=== PATIENT | female | born 1985 | race African-American/Black ===

== ENCOUNTER 2023-01-29 16:39 | Emergency (ER) | payer SELFPAY ==
[~2023-01-29] VITALS: Ht 157.5 cm; Wt 111.0 kg
[2023-01-29 16:52] VITALS: TEMP 98.9; O2SAT 100
[2023-01-29] MEDS ORDERED: TOPUD MT (20:38)
[2023-01-29] MEDS ORDERED: LIDO700A15 TP (20:38)
[2023-01-29 21:01] VITALS: BP 202/119; PULSE 77; RESP 18
== END 2023-01-29 21:03 | disposition home or self-care (01) ==
LOC: ER 16:39
DX: S20.219A Contusion of unspecified front wall of thorax, initial encounter (principal); S20.319A Abrasion of unspecified front wall of thorax, initial encounter; I10 Essential (primary) hypertension; V49.49XA Driver injured in collision with other motor vehicles in traffic accident, initial encounter; Y93.89 Activity, other specified; Y92.89 Other specified places as the place of occurrence of the external cause; Y99.8 Other external cause status
CPT/HCPCS: 71045; 81025; 93005; 99283

== ENCOUNTER 2023-09-10 21:46 | Inpatient (IN) | payer MEDICAID, OTHER ==
[~2023-09-10] VITALS: Ht 157.5 cm; Wt 93.1 kg
[~2023-09-10 21:46] MED LIST: LIDO700A15 TP; TOPUD MT
[2023-09-10 22:38] LABS: CLARITY URINE CLOUDY (CLEAR); COLOR URINE YELLOW (YELLOW); GLUCOSE URINE TRACE (NEGATIVE); KETONES URINE NEGATIVE (NEGATIVE); LEUKOCYTE ESTERASE URINE 2+ (NEGATIVE); NITRITE URINE NEGATIVE (NEGATIVE); OCCULT BLOOD URINE 1+ (NEGATIVE); PROTEIN URINE 3+ (NEGATIVE); SPECIFIC GRAVITY URINE 1.011 (1.005-1.030); UROBILINOGEN URINE 0.2 E.U./dL (0.2-1.0)
[2023-09-10 22:41] LABS: BASOPHILS % 0.5 % (0.0-2.0); EOSINOPHILS % 2.4 % (0.0-5.0); HEMATOCRIT. 24.7 % (36.0-48.0); LYMPHOCYTES % 20.2 % (20.0-50.0); MEAN CORPUSCULAR HEMOGLOBIN 29.7 pg (28.0-32.0); MEAN CORPUSCULAR HGB CONC 32.4 g/dL (31.0-37.0); MEAN CORPUSCULAR VOLUME 91.8 fL (81.0-99.0); MEAN PLATELET VOLUME 7.5 fl (7.4-10.4); MONOCYTES % 6.2 % (2.0-8.0); NEUTROPHILS % 70.7 % (40.0-76.0); PLATELET 262 x1000/uL (130-400); RED BLOOD CELL COUNT 2.69 mill/uL (4.2-5.4); WHITE BLOOD COUNT 7.6 x1000/uL (4.5-11.0)
[2023-09-10 22:43] LABS: CHLORIDE 107 mEq/L (98-107); POTASSIUM 4.3 mEq/L (3.5-5.1); SODIUM 138 mEq/L (136-145)
[2023-09-10 22:44] LABS: CALCIUM 9.1 mg/dL (8.7-10.4); CARBON DIOXIDE 18 mEq/L (21-32)
[2023-09-10 22:49] LABS: GLUCOSE 111 mg/dL (70-105); UREA NITROGEN BLOOD 96 mg/dL (9-23)
[2023-09-10 22:51] LABS: ALANINE AMINOTRANSFERASE 8 IU/L (10-49); ALBUMIN 4.5 g/dL (3.2-4.8); ASPARTATE AMINOTRANSFERASE 11 IU/L (<34); BILIRUBIN TOTAL 0.3 mg/dL (0.1-1.0); PROTEIN TOTAL 7.5 g/dL (6.0-8.3)
[2023-09-10 22:53] LABS: HCG SCREEN NEGATIVE
[2023-09-10 22:54] LABS: CREATININE 14.5 mg/dL (0.6-1.0)
[2023-09-10 22:55] LABS: BILIRUBIN DIRECT < 0.1 mg/dL (<=3.0)
[2023-09-10 23:02] LABS: BACTERIA URINE 1+; SQUAMOUS EPITHELIAL CELL URINE 2+ /lpf (RARE/1+)
[2023-09-10 23:03] LABS: WBC URINE 25-50 /hpf (0-2)
[2023-09-10 23:06] LABS: TRICHOMONAS URINE 1+
[2023-09-11] MEDS: CEFTRIAXONE 1GM/50ML 50 ML IV ONE (01:40)
[2023-09-11] MEDS ORDERED: IPRATROPIUM/ALBUTEROL 0.5-3(2.5)MG/3ML NEB HHN PRN (01:45)
[2023-09-11] MEDS ORDERED: GUAIFENESIN 200MG/10ML SUGAR FREE UDC PO PRN (01:45)
[2023-09-11] MEDS ORDERED: ACETAMINOPHEN 325MG TABLET PO PRN (01:45)
[2023-09-11] MEDS ORDERED: DOCUSATE SODIUM 100MG CAPSULE PO PRN (01:45)
[2023-09-11] MEDS: CLONIDINE 0.1MG TABLET PO PRN (01:47)
[2023-09-11 04:00] VITALS: BP 148/92; PULSE 66; RESP 11; TEMP 97.7
[2023-09-11] MEDS: LEVOFLOXACIN 500MG PREMIX 100 ML IV NR (07:09)
[2023-09-11 08:00] VITALS: BP 145/94; PULSE 74; RESP 21; TEMP 97.9
[2023-09-11 08:50] LABS: CREATININE URINE RANDOM 70.2 mg/dL
[2023-09-11] MEDS: METRONIDAZOLE 500MG TABLET PO SCH (08:56)
[2023-09-11 09:43] LABS: BASOPHILS % 0.7 % (0.0-2.0); EOSINOPHILS % 3.4 % (0.0-5.0); HEMATOCRIT. 23.4 % (36.0-48.0); HEMOGLOBIN. 7.9 g/dL (12.0-16.0); LYMPHOCYTES % 22.1 % (20.0-50.0); MEAN CORPUSCULAR HEMOGLOBIN 30.1 pg (28.0-32.0); MEAN CORPUSCULAR HGB CONC 33.7 g/dL (31.0-37.0); MEAN CORPUSCULAR VOLUME 89.5 fL (81.0-99.0); NEUTROPHILS % 67.8 % (40.0-76.0); PLATELET 230 x1000/uL (130-400); RED BLOOD CELL COUNT 2.62 mill/uL (4.2-5.4); RED CELL DISTRIBUTION WIDTH 14.1 % (11.6-14.6); WHITE BLOOD COUNT 5.6 x1000/uL (4.5-11.0)
[2023-09-11 09:51] LABS: CHLORIDE 107 mEq/L (98-107); POTASSIUM 3.8 mEq/L (3.5-5.1); SODIUM 138 mEq/L (136-145)
[2023-09-11 09:52] LABS: CALCIUM 9.2 mg/dL (8.7-10.4); CARBON DIOXIDE 18 mEq/L (21-32)
[2023-09-11 09:57] LABS: GLUCOSE 137 mg/dL (70-105); INR 0.9; IRON 50 ug/dL (50-170); PARTIAL THROMBOPLASTIN TIME 26.6 sec (23.4-31.0); PROTHROMBIN TIME 10.3 sec (9.6-11.0); TRIGLYCERIDE 115 mg/dL (0-150); UREA NITROGEN BLOOD 87 mg/dL (9-23)
[2023-09-11 09:58] LABS: LDL CHOLESTEROL 155 mg/dL (5-100)
[2023-09-11 09:59] LABS: CHOLESTEROL 218 mg/dL (<200); CREATINE KINASE 88 IU/L (34-145); HDL CHOLESTEROL 34 mg/dL (>65); PHOSPHORUS 7.5 mg/dL (2.5-4.9)
[2023-09-11 10:00] LABS: TOTAL IRON BINDING CAPACITY 396 ug/dl (250-425)
[2023-09-11 10:39] LABS: CREATININE 15.2 mg/dL (0.6-1.0)
[2023-09-11 11:22] LABS: FOLIC ACID (FOLATE) SERUM 15.01 ng/mL (>5.38); VITAMIN B12 SERUM 515 pg/mL (211-911)
[2023-09-11 11:32] LABS: HEPATITIS B SURFACE ANTIGEN NEGATIVE (Negative)
[2023-09-11] MEDS: SODIUM BICARBONATE 50 MEQ in DEXTROSE 5% WATER 950 ML IV ONE (11:45)
[2023-09-11 11:53] LABS: HEPATITIS A AB IGM NEGATIVE (Negative); HEPATITIS B CORE AB IGM NEGATIVE (Negative)
[2023-09-11 11:54] LABS: HEPATITIS C AB NON REACTIVE (Neg) (Negative)
[2023-09-11 12:00] VITALS: BP 135/91; PULSE 75; RESP 12; TEMP 97.7
[2023-09-11 16:00] VITALS: BP 142/83; PULSE 84; RESP 14; TEMP 98
[2023-09-11 20:48] VITALS: BP 146/81; PULSE 88; RESP 16; TEMP 98.5
[2023-09-11] MEDS: ATORVASTATIN CALCIUM 40MG TABLET PO SCH (20:57)
[2023-09-11] MEDS: AMLODIPINE 5MG TABLET PO SCH (20:57)
[2023-09-12] VITALS (7 sets, daily range): BP systolic 112–167; BP diastolic 62–94; PULSE 80–88; RESP 14–18; TEMP 97.5–98.2
[2023-09-12 07:24] LABS: BASOPHILS % 0.5 % (0.0-2.0); EOSINOPHILS % 3.5 % (0.0-5.0); HEMATOCRIT. 23.1 % (36.0-48.0); HEMOGLOBIN. 7.9 g/dL (12.0-16.0); LYMPHOCYTES % 23.3 % (20.0-50.0); MEAN CORPUSCULAR HEMOGLOBIN 30.8 pg (28.0-32.0); MEAN CORPUSCULAR HGB CONC 34.3 g/dL (31.0-37.0); MEAN CORPUSCULAR VOLUME 89.8 fL (81.0-99.0); MEAN PLATELET VOLUME 8.1 fl (7.4-10.4); MONOCYTES % 6.7 % (2.0-8.0); PLATELET 212 x1000/uL (130-400); RED BLOOD CELL COUNT 2.57 mill/uL (4.2-5.4); RED CELL DISTRIBUTION WIDTH 14.1 % (11.6-14.6); WHITE BLOOD COUNT 6.2 x1000/uL (4.5-11.0)
[2023-09-12 08:10] LABS: POTASSIUM 3.5 mEq/L (3.5-5.1)
[2023-09-12 08:12] LABS: T4 FREE 0.86 ng/dL (0.89-1.76); THYROID STIMULATING HORMONE 2.21 uIU/mL (0.55-4.78)
[2023-09-12 08:16] LABS: CALCIUM 8.9 mg/dL (8.7-10.4)
[2023-09-12] MEDS: ASPIRIN 81MG EC TABLET PO SCH (08:31)
[2023-09-12] MEDS: SEVELAMER CARBONATE 800 MG TABLET PO SCH (17:52)
[2023-09-13] VITALS (23 sets, daily range): BP systolic 72–169; BP diastolic 17–102; PULSE 80–100; RESP 13–22; TEMP 97.3–98.3
[2023-09-13] MEDS: DEXT 5%/0.9% NACL 1,000 ML IV SCH (06:42)
[2023-09-13 06:45] LABS: BASOPHILS % 0.6 % (0.0-2.0); EOSINOPHILS % 3.1 % (0.0-5.0); HEMATOCRIT. 22.4 % (36.0-48.0); HEMOGLOBIN. 7.4 g/dL (12.0-16.0); LYMPHOCYTES % 27.1 % (20.0-50.0); MEAN CORPUSCULAR HEMOGLOBIN 29.9 pg (28.0-32.0); MEAN CORPUSCULAR VOLUME 90.4 fL (81.0-99.0); MEAN PLATELET VOLUME 8.1 fl (7.4-10.4); NEUTROPHILS % 63.2 % (40.0-76.0); PLATELET 224 x1000/uL (130-400); RED BLOOD CELL COUNT 2.48 mill/uL (4.2-5.4); RED CELL DISTRIBUTION WIDTH 14.1 % (11.6-14.6); WHITE BLOOD COUNT 7.2 x1000/uL (4.5-11.0)
[2023-09-13 06:51] LABS: CHLORIDE 105 mEq/L (98-107); POTASSIUM 3.7 mEq/L (3.5-5.1); SODIUM 138 mEq/L (136-145)
[2023-09-13 06:52] LABS: CARBON DIOXIDE 17 mEq/L (21-32)
[2023-09-13 06:53] LABS: INR 0.9; PROTHROMBIN TIME 10.3 sec (9.6-11.0)
[2023-09-13 06:57] LABS: GLUCOSE 86 mg/dL (70-105); UREA NITROGEN BLOOD 97 mg/dL (9-23)
[2023-09-13 07:48] LABS: CREATININE 14.9 mg/dL (0.6-1.0)
[2023-09-13] MEDS ORDERED: LIDOCAINE HCL 1% 10 MG/ML 10ML VIAL ONE (08:48)
[2023-09-13] MEDS ORDERED: FENTANYL CITRATE/PF 50MCG/ML 2ML VIAL ONE (08:49)
[2023-09-13] MEDS: FENTANYL CITRATE/PF 50MCG/ML 2ML VIAL IV NR (09:00)
[2023-09-13] MEDS: LEVOFLOXACIN 250MG PREMIX 50 ML IV SCH (10:27)
[2023-09-13] MEDS: FOLIC ACID/VITAMIN B COMP W-C TABLET PO SCH (14:17)
[2023-09-13 15:17] LABS: PHOSPHORUS 9.2 mg/dL (2.5-4.9)
[2023-09-13] MEDS: METRONIDAZOLE 500MG TABLET PO SCH (20:50)
[2023-09-13] MEDS: ACETAMINOPHEN 325MG TABLET PO PRN (20:51)
[2023-09-14] VITALS (17 sets, daily range): BP systolic 120–157; BP diastolic 75–106; PULSE 82–106; RESP 13–24; TEMP 97.3–99
[2023-09-14 07:22] LABS: BASOPHILS % 0.6 % (0.0-2.0); EOSINOPHILS % 3.2 % (0.0-5.0); HEMATOCRIT. 22.6 % (36.0-48.0); HEMOGLOBIN. 7.7 g/dL (12.0-16.0); LYMPHOCYTES % 21.4 % (20.0-50.0); MEAN CORPUSCULAR HEMOGLOBIN 30.3 pg (28.0-32.0); MEAN CORPUSCULAR HGB CONC 34.2 g/dL (31.0-37.0); MEAN CORPUSCULAR VOLUME 88.7 fL (81.0-99.0); MEAN PLATELET VOLUME 8.2 fl (7.4-10.4); MONOCYTES % 7.2 % (2.0-8.0); NEUTROPHILS % 67.6 % (40.0-76.0); PLATELET 196 x1000/uL (130-400); RED BLOOD CELL COUNT 2.54 mill/uL (4.2-5.4); RED CELL DISTRIBUTION WIDTH 13.9 % (11.6-14.6); WHITE BLOOD COUNT 6.2 x1000/uL (4.5-11.0)
[2023-09-14 07:24] LABS: CALCIUM 9.1 mg/dL (8.7-10.4); POTASSIUM 3.6 mEq/L (3.5-5.1)
[2023-09-14 07:41] LABS: CREATININE 11.1 mg/dL (0.6-1.0)
[2023-09-14 13:07] LABS: *CREATININE RANDOM URINE 66.5 mg/dL (Not Estab.); MICROALBUMIN RANDOM URINE 502.4 ug/mL (Not Estab.)
[2023-09-14 13:07] LABS: ANTI-NUCLEAR ANTIBODIES DIRECT Negative (Negative)
[2023-09-14 15:09] LABS: COMPLEMENT C3 111 mg/dL (82-167); COMPLEMENT C4 38 mg/dL (12-38)
[2023-09-14] MEDS: ONDANSETRON HCL 4MG/2ML INJ IV PRN (20:23)
[2023-09-15] VITALS (16 sets, daily range): BP systolic 76–154; BP diastolic 52–98; PULSE 71–98; RESP 12–18; TEMP 98–98.4
[2023-09-15 06:31] LABS: BASOPHILS % 0.4 % (0.0-2.0); HEMATOCRIT. 23.1 % (36.0-48.0); HEMOGLOBIN. 7.9 g/dL (12.0-16.0); LYMPHOCYTES % 25.9 % (20.0-50.0); MEAN CORPUSCULAR HEMOGLOBIN 30.5 pg (28.0-32.0); MEAN CORPUSCULAR HGB CONC 34.3 g/dL (31.0-37.0); MEAN CORPUSCULAR VOLUME 88.8 fL (81.0-99.0); MEAN PLATELET VOLUME 7.9 fl (7.4-10.4); MONOCYTES % 9.3 % (2.0-8.0); NEUTROPHILS % 61.4 % (40.0-76.0); PLATELET 218 x1000/uL (130-400); RED CELL DISTRIBUTION WIDTH 14.3 % (11.6-14.6); WHITE BLOOD COUNT 7.7 x1000/uL (4.5-11.0)
[2023-09-15 06:48] LABS: CALCIUM 9.6 mg/dL (8.7-10.4); POTASSIUM 3.5 mEq/L (3.5-5.1)
[2023-09-15 13:07] LABS: ATYPICAL P-ANCA <1:20 titer (Neg:<1:20); CYTOPLASMIC C-ANCA <1:20 titer (Neg:<1:20); PERINUCLEAR P-ANCA <1:20 titer (Neg:<1:20)
[2023-09-15 17:07] LABS: ANTI-MYELOPEROXIDASE AB < 0.2 units (0.0-0.9); ANTI-PROTEINASE 3 ABS < 0.2 units (0.0-0.9); GLOMERULAR BASEMENT MEMB AB < 0 units (0.0-0.9)
[2023-09-16] VITALS (12 sets, daily range): BP systolic 94–146; BP diastolic 68–99; PULSE 85–103; RESP 12–21; TEMP 98.1–98.6
[2023-09-16 05:48] LABS: POTASSIUM 3.7 mEq/L (3.5-5.1)
[2023-09-16 06:09] LABS: CREATININE 8.5 mg/dL (0.6-1.0)
[2023-09-16 06:22] LABS: BASOPHILS % 0.6 % (0.0-2.0); HEMATOCRIT. 24.8 % (36.0-48.0); HEMOGLOBIN. 8.3 g/dL (12.0-16.0); LYMPHOCYTES % 23.4 % (20.0-50.0); MEAN CORPUSCULAR HEMOGLOBIN 30.2 pg (28.0-32.0); MEAN CORPUSCULAR HGB CONC 33.5 g/dL (31.0-37.0); MEAN CORPUSCULAR VOLUME 90.1 fL (81.0-99.0); MEAN PLATELET VOLUME 8.8 fl (7.4-10.4); MONOCYTES % 8.8 % (2.0-8.0); NEUTROPHILS % 64.2 % (40.0-76.0); PLATELET 233 x1000/uL (130-400); RED BLOOD CELL COUNT 2.75 mill/uL (4.2-5.4); RED CELL DISTRIBUTION WIDTH 14.3 % (11.6-14.6); WHITE BLOOD COUNT 9.4 x1000/uL (4.5-11.0)
[2023-09-16] MEDS: POLYVINYL ALCOHOL OPHTH DROPS 15ML BOTHEYE SCH (16:04)
[2023-09-17] VITALS: BP 132/91; PULSE 91; RESP 14; TEMP 97.8
[2023-09-17 04:00] VITALS: PULSE 98; RESP 15
[2023-09-17 08:00] VITALS: BP 116/69; PULSE 92; RESP 19; TEMP 98.7
[2023-09-17] MEDS ORDERED: POLYVINYL ALCOHOL OPHTH DROPS 15ML BOTHEYE PRN (11:30)
[2023-09-17 12:00] VITALS: BP 110/75; PULSE 93; RESP 25; TEMP 98.6
[2023-09-17] MEDS ORDERED: ATOR10TA69 PO (13:57)
[2023-09-17 16:11] VITALS: BP 110/75; PULSE 93; TEMP 98.6; O2SAT 94
== END 2023-09-17 18:40 | disposition home or self-care (01) | DRG 469 ==
LOC: ER 21:46 → EDBEDREQTM 09-11 00:15 → EDBEDREQ 09-11 00:15 → EDBEDREQDT 09-11 00:15 → EDBEDREQSVC 09-11 01:51 → EDBEDREQTM 09-11 01:51 → 3WST 09-11 03:45
PROVIDERS: ADMIT Internal Medicine; ATTEND Internal Medicine
PROC: 0JH63XZ Insertion of Tunneled Vascular Access Device into Chest Subcutaneous Tissue and Fascia, Percutaneous Approach (ICD-10-PCS; principal; 2023-09-13)
PROC: 02HV33Z Insertion of Infusion Device into Superior Vena Cava, Percutaneous Approach (ICD-10-PCS; 2023-09-13)
PROC: B518ZZA Fluoroscopy of Superior Vena Cava, Guidance (ICD-10-PCS; 2023-09-13)
PROC: 5A1D70Z Performance of Urinary Filtration, Intermittent, Less than 6 Hours Per Day (ICD-10-PCS; 2023-09-13)
PROC: 5A1D70Z Performance of Urinary Filtration, Intermittent, Less than 6 Hours Per Day (ICD-10-PCS; 2023-09-14)
PROC: 5A1D70Z Performance of Urinary Filtration, Intermittent, Less than 6 Hours Per Day (ICD-10-PCS; 2023-09-15)
PROC: 5A1D70Z Performance of Urinary Filtration, Intermittent, Less than 6 Hours Per Day (ICD-10-PCS; 2023-09-16)
DX: N17.9 Acute kidney failure, unspecified (principal); E87.20 Acidosis, unspecified; I12.0 Hypertensive chronic kidney disease with stage 5 chronic kidney disease or end stage renal disease; A59.01 Trichomonal vulvovaginitis; E78.5 Hyperlipidemia, unspecified; D64.9 Anemia, unspecified; N39.0 Urinary tract infection, site not specified; R79.89 Other specified abnormal findings of blood chemistry; N18.6 End stage renal disease; J44.89 Other specified chronic obstructive pulmonary disease; L40.9 Psoriasis, unspecified; N27.1 Small kidney, bilateral; Z88.0 Allergy status to penicillin; Z98.891 History of uterine scar from previous surgery
CPT/HCPCS: 36415; 36558; 71045; 76770; 76937; 77001; 80048; 80061; 80076; 81003; 82043; 82550; 82570; 82607; 82746; 83036; 83516; 83520; 83540; 83550; 83735; 83970; 84100; 84156; 84300; 84439; 84443; 84703; 85025; 86038; 86160; 86256; 86431; 86705; 86706; 86709; 87340; 90935; 93306; 93970; 99152; 99153; 99285; C1750; C1887; C1892; J0696; J1642; J1956; J2405; J3010; J3490; J7042; J7070; G0500

== ENCOUNTER 2023-10-28 20:40 | Emergency (ER) | payer MEDICAID ==
[~2023-10-28] VITALS: Ht 165.1 cm; Wt 112.0 kg
[~2023-10-28 20:40] MED LIST changes: +ATOR10TA69 PO
[2023-10-28 21:19] VITALS: BP 119/82; PULSE 103; RESP 18; TEMP 98.9; O2SAT 100
[2023-10-29 14:18] LABS: BASOPHILS % 0.3 % (0.0-2.0); EOSINOPHILS % 1.5 % (0.0-5.0); HEMATOCRIT. 23.8 % (36.0-48.0); HEMOGLOBIN. 7.6 g/dL (12.0-16.0); LYMPHOCYTES % 11.4 % (20.0-50.0); MEAN CORPUSCULAR HEMOGLOBIN 30.2 pg (28.0-32.0); MEAN CORPUSCULAR HGB CONC 32.2 g/dL (31.0-37.0); MEAN PLATELET VOLUME 8.1 fl (7.4-10.4); MONOCYTES % 6.3 % (2.0-8.0); NEUTROPHILS % 80.5 % (40.0-76.0); PLATELET 371 x1000/uL (130-400); RED BLOOD CELL COUNT 2.53 mill/uL (4.2-5.4); WHITE BLOOD COUNT 9.9 x1000/uL (4.5-11.0)
[2023-10-29 14:32] LABS: CARBON DIOXIDE 28 mEq/L (21-32); CHLORIDE 102 mEq/L (98-107); POTASSIUM 3.8 mEq/L (3.5-5.1); SODIUM 138 mEq/L (136-145)
[2023-10-29 14:33] LABS: CALCIUM 9.4 mg/dL (8.7-10.4)
[2023-10-29 14:38] LABS: GLUCOSE 165 mg/dL (70-105); UREA NITROGEN BLOOD 26 mg/dL (9-23)
[2023-10-29 14:40] LABS: ALANINE AMINOTRANSFERASE 13 IU/L (10-49); ALBUMIN 4.3 g/dL (3.2-4.8); ASPARTATE AMINOTRANSFERASE 12 IU/L (<34); BILIRUBIN TOTAL 0.2 mg/dL (0.1-1.0); PROTEIN TOTAL 7.2 g/dL (6.0-8.3)
[2023-10-29 15:06] LABS: CREATININE 9.4 mg/dL (0.6-1.0)
== END 2023-10-28 23:06 | disposition home or self-care (01) ==
LOC: ER 20:40
DX: T83.098A Other mechanical complication of other urinary catheter, initial encounter (principal); I10 Essential (primary) hypertension; R00.0 Tachycardia, unspecified; Z88.0 Allergy status to penicillin; X58.XXXA Exposure to other specified factors, initial encounter
CPT/HCPCS: 36415; 80053; 85025; 99283

== ENCOUNTER 2023-10-29 13:12 | Inpatient (IN) | payer MEDICAID ==
[~2023-10-29] VITALS: Ht 157.5 cm; Wt 85.7 kg
[2023-10-29] MEDS: VANCOMYCIN 1G PREMIX 200 ML IV SCH (15:00)
[2023-10-29 15:59] LABS: HEPATITIS B SURFACE ANTIGEN NEGATIVE (Negative)
[2023-10-29 16:20] LABS: HEPATITIS A AB IGM NEGATIVE (Negative)
[2023-10-29 16:21] LABS: HEPATITIS B CORE AB IGM NEGATIVE (Negative); HEPATITIS C AB NON REACTIVE (Neg) (Negative)
[2023-10-29] MEDS: LEVOFLOXACIN 500MG PREMIX 100 ML IV SCH (16:45)
[2023-10-29] MEDS ORDERED: IPRATROPIUM/ALBUTEROL 0.5-3(2.5)MG/3ML NEB HHN PRN (18:30)
[2023-10-29] MEDS ORDERED: DOCUSATE SODIUM 100MG CAPSULE PO PRN (18:30)
[2023-10-29] MEDS ORDERED: ACETAMINOPHEN 325MG TABLET PO PRN (18:30)
[2023-10-29] MEDS ORDERED: MAGNESIUM/ALUMINUM HYDROXIDE/SIMETHICONE 30ML UDC PO PRN (18:30)
[2023-10-29] MEDS ORDERED: CLONIDINE 0.1MG TABLET PO PRN (18:30)
[2023-10-29] MEDS ORDERED: ONDANSETRON HCL 4MG/2ML INJ IV PRN (18:30)
[2023-10-29 20:00] VITALS: BP_SYST 136; BP_SYST 137; BP_DIAS 82; BP_DIAS 88; PULSE 104; PULSE 20; RESP 20; TEMP 97.5; TEMP 99.1
[2023-10-29 20:00] LABS: CHLORIDE 103 mEq/L (98-107)
[2023-10-29 20:01] LABS: CALCIUM 9.2 mg/dL (8.7-10.4); CARBON DIOXIDE 25 mEq/L (21-32); POTASSIUM 3.9 mEq/L (3.5-5.1); SODIUM 140 mEq/L (136-145)
[2023-10-29 20:06] LABS: GLUCOSE 165 mg/dL (70-105)
[2023-10-29 20:07] LABS: LDL CHOLESTEROL 38 mg/dL (5-100); TRIGLYCERIDE 212 mg/dL (0-150); UREA NITROGEN BLOOD 27 mg/dL (9-23)
[2023-10-29 20:08] LABS: ALANINE AMINOTRANSFERASE 15 IU/L (10-49); ALBUMIN 4.2 g/dL (3.2-4.8); ASPARTATE AMINOTRANSFERASE 12 IU/L (<34); CHOLESTEROL 87 mg/dL (<200); HDL CHOLESTEROL 22 mg/dL (>65)
[2023-10-29 20:09] LABS: BILIRUBIN TOTAL 0.2 mg/dL (0.1-1.0); PROTEIN TOTAL 6.8 g/dL (6.0-8.3)
[2023-10-29] MEDS: ACETAMINOPHEN 325MG TABLET PO PRN (20:10)
[2023-10-29 20:25] LABS: CREATININE 9.5 mg/dL (0.6-1.0)
[2023-10-29 21:21] LABS: BASOPHILS % 0.4 % (0.0-2.0); EOSINOPHILS % 0.9 % (0.0-5.0); HEMATOCRIT. 22.9 % (36.0-48.0); HEMOGLOBIN. 7.5 g/dL (12.0-16.0); LYMPHOCYTES % 14.8 % (20.0-50.0); MEAN CORPUSCULAR HGB CONC 32.8 g/dL (31.0-37.0); MEAN CORPUSCULAR VOLUME 94.5 fL (81.0-99.0); MEAN PLATELET VOLUME 8.6 fl (7.4-10.4); NEUTROPHILS % 77.9 % (40.0-76.0); PLATELET 376 x1000/uL (130-400); RED BLOOD CELL COUNT 2.42 mill/uL (4.2-5.4); WHITE BLOOD COUNT 10.7 x1000/uL (4.5-11.0)
[2023-10-30 00:06] VITALS: BP 121/70; PULSE 90; RESP 18; TEMP 99
[2023-10-30 04:00] VITALS: BP 126/77; PULSE 84; RESP 0; TEMP 98
[2023-10-30 05:42] LABS: POTASSIUM 3.9 mEq/L (3.5-5.1)
[2023-10-30 05:44] LABS: CALCIUM 9.4 mg/dL (8.7-10.4)
[2023-10-30 05:48] LABS: BASOPHILS % 0.5 % (0.0-2.0); DIFFERENTIAL COMMENT 0; EOSINOPHILS % 1.2 % (0.0-5.0); LYMPHOCYTES % 16.6 % (20.0-50.0); MEAN CORPUSCULAR HEMOGLOBIN 30.1 pg (28.0-32.0); MEAN CORPUSCULAR HGB CONC 32.2 g/dL (31.0-37.0); MEAN CORPUSCULAR VOLUME 93.5 fL (81.0-99.0); MEAN PLATELET VOLUME 8.3 fl (7.4-10.4); MONOCYTES % 6.6 % (2.0-8.0); NEUTROPHILS % 75.1 % (40.0-76.0); PLATELET 371 x1000/uL (130-400); RED BLOOD CELL COUNT 2.23 mill/uL (4.2-5.4); WHITE BLOOD COUNT 8.8 x1000/uL (4.5-11.0)
[2023-10-30 05:52] LABS: T4 FREE 1.14 ng/dL (0.89-1.76); THYROID STIMULATING HORMONE 0.76 uIU/mL (0.55-4.78)
[2023-10-30 07:54] LABS: HEMOGLOBIN. 6.7 g/dL (12.0-16.0)
[2023-10-30 07:55] LABS: HEMATOCRIT. 20.9 % (36.0-48.0)
[2023-10-30 08:00] VITALS: BP 127/80; PULSE 89; RESP 19; TEMP 98.1
[2023-10-30] MEDS: AMLODIPINE 10MG TABLET PO SCH (08:48)
[2023-10-30] MEDS: FAMOTIDINE 20MG TABLET PO SCH (08:48)
[2023-10-30 10:29] LABS: HEMATOCRIT 22.4 % (36.0-48.0); HEMOGLOBIN 7.3 g/dL (12.0-16.0)
[2023-10-30] MEDS ORDERED: LIDOCAINE HCL 1% 10 MG/ML 10ML VIAL ONE (10:31)
[2023-10-30 10:42] LABS: PROTHROMBIN TIME 11.5 sec (9.6-11.0)
[2023-10-30] MEDS: VANCOMYCIN 1G PREMIX 200 ML IV SCH (11:55)
[2023-10-30 12:00] VITALS: BP 127/91; PULSE 76; RESP 18; TEMP 98.1
[2023-10-30 16:00] VITALS: BP_SYST 125; BP_DIAS 52; BP_DIAS 82; PULSE 73; RESP 20; TEMP 98.1
[2023-10-30 20:00] VITALS: BP 128/76; PULSE 100; RESP 18; TEMP 97.3
[2023-10-30] MEDS: GUAIFENESIN 200MG/10ML SUGAR FREE UDC PO PRN (20:48)
[2023-10-30] MEDS: EPOETIN ALFA 4000UNITS/ML VIAL SUBCUT SCH (20:48)
[2023-10-31] VITALS (10 sets, daily range): BP systolic 116–136; BP diastolic 72–81; PULSE 74–98; RESP 18; TEMP 96.9–98.8
[2023-10-31 06:54] LABS: BASOPHILS % 0.5 % (0.0-2.0); DIFFERENTIAL COMMENT 0; EOSINOPHILS % 2.4 % (0.0-5.0); LYMPHOCYTES % 20.8 % (20.0-50.0); MEAN CORPUSCULAR HEMOGLOBIN 30.5 pg (28.0-32.0); MEAN CORPUSCULAR HGB CONC 32.7 g/dL (31.0-37.0); MEAN CORPUSCULAR VOLUME 93.3 fL (81.0-99.0); MEAN PLATELET VOLUME 8.1 fl (7.4-10.4); MONOCYTES % 6.9 % (2.0-8.0); NEUTROPHILS % 69.4 % (40.0-76.0); PLATELET 390 x1000/uL (130-400); RED BLOOD CELL COUNT 2.18 mill/uL (4.2-5.4); RED CELL DISTRIBUTION WIDTH 14.9 % (11.6-14.6); WHITE BLOOD COUNT 7.1 x1000/uL (4.5-11.0)
[2023-10-31 06:55] LABS: POTASSIUM 4.2 mEq/L (3.5-5.1)
[2023-10-31 06:57] LABS: CALCIUM 9.2 mg/dL (8.7-10.4)
[2023-10-31 07:45] LABS: HEMATOCRIT. 20.4 % (36.0-48.0); HEMOGLOBIN. 6.7 g/dL (12.0-16.0)
[2023-10-31 08:51] LABS: CREATININE 12.3 mg/dL (0.6-1.0)
[2023-10-31] MEDS ORDERED: LEVOFLOXACIN 500MG PREMIX 100 ML IV SCH (09:00)
[2023-10-31 12:01] LABS: ERYTHROCYTE SEDIMENTATION RATE 124 mm/hr (0-20)
[2023-11-01] VITALS: BP 123/69; PULSE 98; RESP 18; TEMP 98
[2023-11-01 04:00] VITALS: BP 119/68; PULSE 97; RESP 18; TEMP 98.2
[2023-11-01 08:00] VITALS: BP 140/79; PULSE 83; RESP 19; TEMP 98.1
[2023-11-01 12:00] VITALS: BP 138/73; PULSE 85; RESP 20; TEMP 98.1
[2023-11-01 12:18] LABS: BASOPHILS % 0.3 % (0.0-2.0); HEMOGLOBIN. 8.7 g/dL (12.0-16.0); LYMPHOCYTES % 17.6 % (20.0-50.0); MEAN CORPUSCULAR HEMOGLOBIN 31.4 pg (28.0-32.0); MEAN CORPUSCULAR HGB CONC 33.5 g/dL (31.0-37.0); MEAN CORPUSCULAR VOLUME 93.8 fL (81.0-99.0); MEAN PLATELET VOLUME 7.8 fl (7.4-10.4); MONOCYTES % 5.8 % (2.0-8.0); NEUTROPHILS % 74.3 % (40.0-76.0); PLATELET 499 x1000/uL (130-400); RED BLOOD CELL COUNT 2.77 mill/uL (4.2-5.4); RED CELL DISTRIBUTION WIDTH 14.6 % (11.6-14.6); WHITE BLOOD COUNT 8.2 x1000/uL (4.5-11.0)
[2023-11-01 12:21] LABS: CHLORIDE 102 mEq/L (98-107); POTASSIUM 4.9 mEq/L (3.5-5.1); SODIUM 136 mEq/L (136-145)
[2023-11-01 12:22] LABS: CALCIUM 9.3 mg/dL (8.7-10.4); CARBON DIOXIDE 21 mEq/L (21-32)
[2023-11-01 12:27] LABS: GLUCOSE 91 mg/dL (70-105); UREA NITROGEN BLOOD 53 mg/dL (9-23)
[2023-11-01 12:29] LABS: ALANINE AMINOTRANSFERASE 20 IU/L (10-49); ALBUMIN 4.1 g/dL (3.2-4.8); ASPARTATE AMINOTRANSFERASE 16 IU/L (<34); BILIRUBIN TOTAL 0.2 mg/dL (0.1-1.0)
[2023-11-01 16:00] VITALS: BP 122/64; PULSE 94; RESP 18; TEMP 98.2
[2023-11-01 20:00] VITALS: BP 117/81; PULSE 88; RESP 18; TEMP 98.2
[2023-11-01] MEDS ORDERED: SODIUM POLYSTYRENE SULFONATE 15 G/60 ML BOT PO NR (22:00)
[2023-11-02] VITALS: BP 123/82; PULSE 85; RESP 18; TEMP 96.8
[2023-11-02] MEDS: SODIUM ZIRCONIUM CYCLOSILICATE 10GM/PACKET PO NR (01:38)
[2023-11-02 04:00] VITALS: BP 126/88; PULSE 88; RESP 18; TEMP 97.2
[2023-11-02 06:59] LABS: BASOPHILS % 0.4 % (0.0-2.0); EOSINOPHILS % 2.6 % (0.0-5.0); HEMATOCRIT. 24.7 % (36.0-48.0); LYMPHOCYTES % 23.6 % (20.0-50.0); MEAN CORPUSCULAR HEMOGLOBIN 30.4 pg (28.0-32.0); MEAN CORPUSCULAR HGB CONC 32.5 g/dL (31.0-37.0); MEAN CORPUSCULAR VOLUME 93.5 fL (81.0-99.0); MEAN PLATELET VOLUME 7.6 fl (7.4-10.4); MONOCYTES % 5.2 % (2.0-8.0); NEUTROPHILS % 68.2 % (40.0-76.0); PLATELET 453 x1000/uL (130-400); RED BLOOD CELL COUNT 2.65 mill/uL (4.2-5.4); WHITE BLOOD COUNT 7.6 x1000/uL (4.5-11.0)
[2023-11-02 07:03] LABS: POTASSIUM 5.1 mEq/L (3.5-5.1)
[2023-11-02 07:05] LABS: CALCIUM 9.4 mg/dL (8.7-10.4)
[2023-11-02 07:20] LABS: CREATININE 14.5 mg/dL (0.6-1.0)
[2023-11-02 08:00] VITALS: BP 138/86; PULSE 78; RESP 18; TEMP 97.7
[2023-11-02 12:00] VITALS: BP 135/75; PULSE 80; RESP 18; TEMP 97.9
[2023-11-02 16:00] VITALS: BP 134/72; PULSE 85; RESP 18; TEMP 98.1
[2023-11-02 20:00] VITALS: BP 125/76; PULSE 93; RESP 16; TEMP 98.6
[2023-11-02] MEDS: EPOETIN ALFA-EPBX 4,000 UNIT/ML VIAL SUBCUT SCH (21:00)
[2023-11-03] VITALS: BP 120/68; PULSE 84; RESP 18; TEMP 98
[2023-11-03 04:00] VITALS: BP 120/71; PULSE 83; RESP 17; TEMP 98.4
[2023-11-03 07:15] LABS: BASOPHILS % 0.5 % (0.0-2.0); EOSINOPHILS % 2.1 % (0.0-5.0); HEMATOCRIT. 24.5 % (36.0-48.0); LYMPHOCYTES % 23.7 % (20.0-50.0); MEAN CORPUSCULAR HGB CONC 32.9 g/dL (31.0-37.0); MEAN CORPUSCULAR VOLUME 94.2 fL (81.0-99.0); MEAN PLATELET VOLUME 7.7 fl (7.4-10.4); MONOCYTES % 5.7 % (2.0-8.0); PLATELET 499 x1000/uL (130-400); WHITE BLOOD COUNT 8.2 x1000/uL (4.5-11.0)
[2023-11-03 07:17] LABS: POTASSIUM 5.4 mEq/L (3.5-5.1)
[2023-11-03 07:18] LABS: CALCIUM 9.3 mg/dL (8.7-10.4)
[2023-11-03 07:44] LABS: CREATININE 14.7 mg/dL (0.6-1.0)
[2023-11-03 08:00] VITALS: BP 119/70; PULSE 79; RESP 18; TEMP 97.9
[2023-11-03] MEDS: SODIUM ZIRCONIUM CYCLOSILICATE 10GM/PACKET PO NR (09:26)
[2023-11-03] MEDS ORDERED: ALBUTEROL (0.083%) 2.5MG/3ML NEB HHN NR ×2 (10:00→16:30)
[2023-11-03 16:00] VITALS: BP 130/78; PULSE 91; RESP 18; TEMP 97.9
[2023-11-03] MEDS: INSULIN REGULAR (HUMULIN R) 1000UNITS/10ML VIAL IV NR (16:30)
[2023-11-03] MEDS ORDERED: CALCIUM CHLORIDE 1GM/10ML SYR IV NR (17:00)
[2023-11-03] MEDS: SODIUM POLYSTYRENE SULFONATE 15 G/60 ML BOT PO NR (17:34)
[2023-11-03] MEDS: SODIUM BICARBONATE 8.4% 50MEQ/50ML SYR IV NR (17:37)
[2023-11-03] MEDS: DEXTROSE 50% WATER 50ML SYRINGE IV NR (18:45)
[2023-11-03] MEDS: CALCIUM GLUCONATE 1GM PREMIX 50ML IV NR (18:45)
[2023-11-03 20:00] VITALS: BP 122/71; PULSE 67; RESP 20; TEMP 98.1
[2023-11-04] VITALS (21 sets, daily range): BP systolic 115–151; BP diastolic 61–101; PULSE 77–93; RESP 12–19; TEMP 96.9–98.6
[2023-11-04] MEDS ORDERED: LIDOCAINE HCL 1% 10 MG/ML 10ML VIAL ONE (08:30)
[2023-11-04] MEDS: FENTANYL CITRATE/PF 50MCG/ML 2ML VIAL IV NR (09:20)
[2023-11-04] MEDS ORDERED: FENTANYL CITRATE/PF 50MCG/ML 2ML VIAL ONE ×2 (09:21→15:10)
[2023-11-04] MEDS ORDERED: LIDOCAINE 2% 6ML GLYDO MM ONE (15:09)
[2023-11-04] MEDS ORDERED: MIDAZOLAM HCL 2 MG/2 ML VIAL ONE ×2 (15:10→15:21)
[2023-11-04] MEDS ORDERED: TETRACAINE/BENZOCAINE/BUTAMBEN 20 GM SPRAY MM ONE (15:12)
[2023-11-05] VITALS: BP 127/85; PULSE 98; RESP 20; TEMP 98.4
[2023-11-05 04:00] VITALS: BP 129/76; PULSE 76; RESP 18; TEMP 97.2
[2023-11-05 08:17] LABS: POTASSIUM 4.1 mEq/L (3.5-5.1)
[2023-11-05 08:19] LABS: CALCIUM 9.4 mg/dL (8.7-10.4)
[2023-11-05 08:20] LABS: BASOPHILS % 0.5 % (0.0-2.0); EOSINOPHILS % 2.3 % (0.0-5.0); HEMATOCRIT. 25.6 % (36.0-48.0); HEMOGLOBIN. 8.6 g/dL (12.0-16.0); LYMPHOCYTES % 19.4 % (20.0-50.0); MEAN CORPUSCULAR HEMOGLOBIN 31.5 pg (28.0-32.0); MEAN CORPUSCULAR HGB CONC 33.7 g/dL (31.0-37.0); MEAN CORPUSCULAR VOLUME 93.5 fL (81.0-99.0); MEAN PLATELET VOLUME 7.2 fl (7.4-10.4); MONOCYTES % 5.7 % (2.0-8.0); NEUTROPHILS % 72.1 % (40.0-76.0); PLATELET 535 x1000/uL (130-400); RED BLOOD CELL COUNT 2.74 mill/uL (4.2-5.4); RED CELL DISTRIBUTION WIDTH 15.4 % (11.6-14.6)
[2023-11-05 08:26] LABS: CREATININE 10.7 mg/dL (0.6-1.0)
[2023-11-05] MEDS ORDERED: NALOXONE HCL 0.4MG/ML VIAL IV PRN (09:00)
[2023-11-05] MEDS: TRAMADOL 50MG TABLET PO PRN (09:07)
[2023-11-05 12:13] VITALS: BP 135/87; PULSE 100; RESP 20; TEMP 98
[2023-11-05 14:48] VITALS: BP 135/87; PULSE 100; TEMP 98; O2SAT 100
[2023-11-05 16:00] VITALS: BP 115/61; PULSE 99; RESP 20; TEMP 98.4
[2023-11-05] MEDS ORDERED: VANCOMYCIN 750MG/250ML IV NR (18:00)
== END 2023-11-05 16:15 | disposition home or self-care (01) | DRG 721 ==
LOC: ER 13:12 → 6WST 16:57 → EDBEDREQTM 16:59 → EDBEDREQ 16:59
PROVIDERS: ADMIT Internal Medicine; ATTEND Internal Medicine
PROC: 0JH63XZ Insertion of Tunneled Vascular Access Device into Chest Subcutaneous Tissue and Fascia, Percutaneous Approach (ICD-10-PCS; 2023-10-29)
PROC: 02HV33Z Insertion of Infusion Device into Superior Vena Cava, Percutaneous Approach (ICD-10-PCS; 2023-10-29)
PROC: 02PY33Z Removal of Infusion Device from Great Vessel, Percutaneous Approach (ICD-10-PCS; 2023-10-31)
PROC: 5A1D70Z Performance of Urinary Filtration, Intermittent, Less than 6 Hours Per Day (ICD-10-PCS; principal; 2023-11-04)
PROC: B24BZZ4 Ultrasonography of Heart with Aorta, Transesophageal (ICD-10-PCS; 2023-11-04)
DX: T80.211A Bloodstream infection due to central venous catheter, initial encounter (principal); A41.02 Sepsis due to Methicillin resistant Staphylococcus aureus; I12.0 Hypertensive chronic kidney disease with stage 5 chronic kidney disease or end stage renal disease; N18.6 End stage renal disease; L40.9 Psoriasis, unspecified; D64.9 Anemia, unspecified; E78.5 Hyperlipidemia, unspecified; J45.909 Unspecified asthma, uncomplicated; Y84.8 Other medical procedures as the cause of abnormal reaction of the patient, or of later complication, without mention of misadventure at the time of the procedure; Z88.0 Allergy status to penicillin; Z99.2 Dependence on renal dialysis; Z79.899 Other long term (current) drug therapy
CPT/HCPCS: 36415; 36558; 36589; 77001; 80048; 80053; 80061; 80202; 82962; 83036; 83605; 84145; 84439; 84443; 85014; 85018; 85025; 85651; 86705; 86709; 86850; 86900; 86920; 87070; 87077; 87186; 87340; 90935; 93005; 93306; 93312; 97162; 97165; 99152; 99153; 99285; C1725; C1750; C1769; C1892; J0610; J0885; J1642; J1815; J1956; J2250; J3010; J3370; J3490; P9016; G0500

== ENCOUNTER 2025-01-09 15:16 | Inpatient (IN) | payer MEDICAID ==
[~2025-01-09] VITALS: Ht 157.5 cm; Wt 77.1 kg
[~2025-01-09 15:16] MED LIST changes: +AMLO5TAB88 PO; +CINA30TA5 PO; -LIDO700A15 TP; +SEVE800T8 PO; -TOPUD MT
[2025-01-09 15:54] VITALS: O2SAT 96
[2025-01-09 16:34] LABS: HEMATOCRIT. 25.6 % (36.0-48.0); HEMOGLOBIN. 8.4 g/dL (12.0-16.0); MEAN PLATELET VOLUME 8.8 fl (7.4-10.4); PLATELET 273 x1000/uL (130-400); RED BLOOD CELL COUNT 2.83 mill/uL (4.2-5.4); RED CELL DISTRIBUTION WIDTH 14.8 % (11.6-14.6)
[2025-01-09] MEDS: KETOROLAC 15MG/ML VIAL IM ONE (16:45)
[2025-01-09 16:46] LABS: UREA NITROGEN BLOOD 100 mg/dL (9-23)
[2025-01-09 16:48] LABS: ASPARTATE AMINOTRANSFERASE 9 IU/L (<34); BILIRUBIN DIRECT < 0.1 mg/dL (<=3.0); BILIRUBIN TOTAL 0.2 mg/dL (0.1-1.0); PROTEIN TOTAL 6.4 g/dL (6.0-8.3)
[2025-01-09 16:55] LABS: CREATININE 29.1 mg/dL (0.6-1.0)
[2025-01-09 17:02] LABS: HCG SCREEN NEGATIVE
[2025-01-09] MEDS: MAGNESIUM/ALUMINUM HYDROXIDE/SIMETHICONE 30ML UDC PO ONE (18:25)
[2025-01-09] MEDS: ONDANSETRON 4MG ODT PO ONE (18:25)
[2025-01-09] MEDS: FAMOTIDINE 20MG TABLET PO ONE (18:25)
[2025-01-09 18:39] LABS: BAND% 1.0 % (1.0-6.0); LYMPHOCYTES % MANUAL 6.0 % (20.0-60.0); MONOCYTES % MANUAL 7.0 % (2.0-8.0); NEUTROPHILS % MANUAL 86.0 % (45.0-75.0); PLATELET ESTIMATE NORMAL
[2025-01-09] MEDS: SODIUM CHLORIDE 0.9% 500 ML IV ONE (18:43)
[2025-01-09 22:40] VITALS: BP 173/78; PULSE 82; RESP 20; TEMP 36.1956; TEMP 36.2; O2SAT 93
[2025-01-10] VITALS (9 sets, daily range): BP systolic 86–134; BP diastolic 42–84; PULSE 72–91; RESP 18; TEMP 36.3–36.89184; O2SAT 95–100
[2025-01-10] MEDS: CLONIDINE 0.1MG TABLET PO PRN (00:18)
[2025-01-10] MEDS: HYDRALAZINE HCL 100MG TABLET PO SCH (06:09)
[2025-01-10] MEDS: ONDANSETRON HCL 4MG/2ML INJ IV PRN (07:25)
[2025-01-10 08:01] LABS: CLARITY URINE CLEAR (CLEAR); COLOR URINE YELLOW (YELLOW); GLUCOSE URINE 1+ (NEGATIVE); KETONES URINE TRACE (NEGATIVE); LEUKOCYTE ESTERASE URINE NEGATIVE (NEGATIVE); NITRITE URINE NEGATIVE (NEGATIVE); OCCULT BLOOD URINE TRACE (NEGATIVE); PH URINE 7.5 (4.5-8.0); PROTEIN URINE 4+ (NEGATIVE); SPECIFIC GRAVITY URINE 1.016 (1.005-1.030); UROBILINOGEN URINE 0.2 E.U./dL (0.2-1.0)
[2025-01-10 08:41] LABS: BASOPHILS % 0.3 % (0.0-2.0); EOSINOPHILS % 2.9 % (0.0-5.0); HEMATOCRIT. 26.9 % (36.0-48.0); HEMOGLOBIN. 8.7 g/dL (12.0-16.0); LYMPHOCYTES % 11.8 % (20.0-50.0); MEAN PLATELET VOLUME 9.2 fl (7.4-10.4); MONOCYTES % 6.2 % (2.0-8.0); NEUTROPHILS % 78.8 % (40.0-76.0); PLATELET 270 x1000/uL (130-400); RED BLOOD CELL COUNT 2.91 mill/uL (4.2-5.4); RED CELL DISTRIBUTION WIDTH 15.0 % (11.6-14.6)
[2025-01-10 08:49] LABS: SQUAMOUS EPITHELIAL CELL URINE 2+ /lpf (RARE/1+)
[2025-01-10 08:50] LABS: BACTERIA URINE TRACE; RBC URINE 0-2 /hpf (0-2)
[2025-01-10] MEDS: AMLODIPINE 10MG TABLET PO SCH (09:00)
[2025-01-10 09:10] LABS: UREA NITROGEN BLOOD 73.0 mg/dL (9-23)
[2025-01-10] MEDS: SEVELAMER CARBONATE 800 MG TABLET PO SCH (09:25)
[2025-01-10 09:31] LABS: CREATININE 28.9 mg/dL (0.6-1.0)
[2025-01-10] MEDS: HYDROCODONE/ACETAMINOPHEN 5/325MG TABLET PO PRN (09:31)
[2025-01-10 17:09] LABS: PHOSPHORUS 11.0 mg/dL (2.5-4.9)
[2025-01-10] MEDS: ATORVASTATIN CALCIUM 20MG TABLET PO SCH (21:43)
[2025-01-11] VITALS (9 sets, daily range): BP systolic 105–139; BP diastolic 48–78; PULSE 77–98; RESP 18–20; TEMP 36.6–37.9; O2SAT 94–100
[2025-01-11 07:48] LABS: BODY FLUID RBC 2 /cu mm (0-2000); BODY FLUID WBC 40 /cu mm (0-200)
[2025-01-12] VITALS (9 sets, daily range): BP systolic 117–160; BP diastolic 52–85; PULSE 84–107; RESP 18–20; TEMP 35.6–38.4; O2SAT 95–100
[2025-01-12] MEDS: DIPHENHYDRAMINE 50MG CAPSULE PO SCH (04:39)
[2025-01-12 08:28] LABS: HEMATOCRIT. 22.4 % (36.0-48.0); HEMOGLOBIN. 7.4 g/dL (12.0-16.0); MEAN PLATELET VOLUME 8.9 fl (7.4-10.4); PLATELET 349 x1000/uL (130-400); RED BLOOD CELL COUNT 2.50 mill/uL (4.2-5.4); RED CELL DISTRIBUTION WIDTH 14.9 % (11.6-14.6)
[2025-01-12 09:35] LABS: CREATININE 28.1 mg/dL (0.6-1.0); UREA NITROGEN BLOOD 108.0 mg/dL (9-23)
[2025-01-12] MEDS: ALTEPLASE 2MG/VIAL ITC NR (13:03)
[2025-01-12] MEDS ORDERED: NALOXONE HCL 0.4MG/ML VIAL IV PRN (14:15)
[2025-01-12] MEDS: SODIUM ZIRCONIUM CYCLOSILICATE 10GM/PACKET PO NR (14:42)
[2025-01-12] MEDS ORDERED: ALTEPLASE 2MG/VIAL ITC SCH (15:00)
[2025-01-12] MEDS ORDERED: MORPHINE SULFATE 2 MG/ML INJ (NOT FOR IM USE) IV PRN (20:15)
[2025-01-12] MEDS: ACETAMINOPHEN 325MG TABLET PO PRN (21:09)
[2025-01-12] MEDS: HYDROMORPHONE HCL/PF 1MG/ML INJ IV SCH (21:21)
[2025-01-12] MEDS: EPOETIN ALFA-EPBX 4,000 UNITS/ML VIAL SUBCUT SCH (22:20)
[2025-01-13] VITALS (8 sets, daily range): BP systolic 41–149; BP diastolic 62–84; PULSE 101–105; RESP 16–20; TEMP 36.4–37.2; O2SAT 91–99
[2025-01-13 06:07] LABS: HEMATOCRIT. 23.5 % (36.0-48.0); HEMOGLOBIN. 7.6 g/dL (12.0-16.0); MEAN PLATELET VOLUME 8.6 fl (7.4-10.4); PLATELET 344 x1000/uL (130-400); RED BLOOD CELL COUNT 2.60 mill/uL (4.2-5.4); RED CELL DISTRIBUTION WIDTH 15.5 % (11.6-14.6)
[2025-01-13 06:09] LABS: INR 1.0
[2025-01-13 06:46] LABS: CREATININE 27.1 mg/dL (0.6-1.0); UREA NITROGEN BLOOD 118.0 mg/dL (9-23)
[2025-01-13 09:45] LABS: BAND% 7.0 % (1.0-6.0); LYMPHOCYTES % MANUAL 4.0 % (20.0-60.0); MONOCYTES % MANUAL 2.0 % (2.0-8.0); NEUTROPHILS % MANUAL 87.0 % (45.0-75.0); PLATELET ESTIMATE NORMAL
[2025-01-13] MEDS ORDERED: MANNITOL 12.5G (25%) VIAL 50ML IV SCH (10:00)
[2025-01-13] MEDS ORDERED: LIDOCAINE HCL 1% 10 MG/ML 10ML VIAL ONE (10:55)
[2025-01-13] MEDS ORDERED: HEPARIN 1000 UNITS/ML 10ML ONE (10:57)
[2025-01-13 12:33] LABS: HEPATITIS A AB IGM NEGATIVE (Negative); HEPATITIS B CORE AB IGM NEGATIVE (Negative)
[2025-01-13 12:34] LABS: HEPATITIS C AB NON REACTIVE (Neg) (Negative)
[2025-01-13 13:49] LABS: BAND% 2.0 % (1.0-6.0); LYMPHOCYTES % MANUAL 3.0 % (20.0-60.0); MONOCYTES % MANUAL 6.0 % (2.0-8.0); NEUTROPHILS % MANUAL 89.0 % (45.0-75.0)
[2025-01-13 13:50] LABS: PLATELET ESTIMATE NORMAL
[2025-01-14] VITALS (10 sets, daily range): BP systolic 115–162; BP diastolic 61–88; PULSE 60–122; RESP 17–20; TEMP 36.55848–37.6; O2SAT 91–99
[2025-01-14] MEDS: MANNITOL 12.5G (25%) VIAL 50ML IV SCH (02:27)
[2025-01-14 06:26] LABS: HEMATOCRIT. 21.5 % (36.0-48.0); HEMOGLOBIN. 7.2 g/dL (12.0-16.0); MEAN PLATELET VOLUME 8.7 fl (7.4-10.4); PLATELET 365 x1000/uL (130-400); RED BLOOD CELL COUNT 2.41 mill/uL (4.2-5.4); RED CELL DISTRIBUTION WIDTH 15.9 % (11.6-14.6)
[2025-01-14 06:35] LABS: UREA NITROGEN BLOOD 72.0 mg/dL (9-23)
[2025-01-14 06:49] LABS: CREATININE 18.1 mg/dL (0.6-1.0)
[2025-01-14] MEDS ORDERED: ALBUTEROL 6.7GM HFA INHALER ONE ×2 (07:26→07:27)
[2025-01-14] MEDS ORDERED: ACETAMINOPHEN 1000MG/100ML 100 ML IV ONE (07:27)
[2025-01-14] MEDS ORDERED: FAMOTIDINE 20MG/2ML VIAL IV ONE (07:28)
[2025-01-14] MEDS ORDERED: HYDROMORPHONE HCL/PF 1MG/ML INJ IV PRN (07:30)
[2025-01-14] MEDS ORDERED: ONDANSETRON HCL 4MG/2ML INJ IV PRN (07:30)
[2025-01-14] MEDS ORDERED: ROCURONIUM BROMIDE 10MG/ML VIAL 5ML IV ONE (07:30)
[2025-01-14] MEDS ORDERED: EPHEDRINE SULFATE 50MG/ML VIAL ONE (07:31)
[2025-01-14] MEDS ORDERED: FENTANYL CITRATE/PF 50MCG/ML 2ML VIAL ONE (07:31)
[2025-01-14] MEDS ORDERED: PROPOFOL 200MG/20ML VIAL IV ONE (07:31)
[2025-01-14] MEDS ORDERED: PHENYLEPHRINE HCL 10MG/ML 1ML IV ONE (07:31)
[2025-01-14] MEDS ORDERED: ONDANSETRON HCL 4MG/2ML INJ ONE (07:31)
[2025-01-14] MEDS ORDERED: LIDOCAINE HCL 1% 10 MG/ML 10ML VIAL ONE (07:37)
[2025-01-14] MEDS ORDERED: BUPIVACAINE HCL/PF 0.5% (5MG/ML) 10ML ONE (07:37)
[2025-01-14] MEDS ORDERED: POLYMYXIN B SULFATE 500000 UNITS/VIAL ONE (07:40)
[2025-01-14] MEDS ORDERED: CEFAZOLIN SODIUM 1000MG/VIAL ONE (08:07)
[2025-01-14] MEDS: VANCOMYCIN 1.5GM/250ML 250 ML IV SCH (11:45)
[2025-01-14] MEDS: HYDROCODONE/ACETAMINOPHEN 5/325MG TABLET PO PRN (11:46)
[2025-01-14 16:26] LABS: EOSINOPHILS % MANUAL 2.0 % (0.0-5.0); LYMPHOCYTES % MANUAL 3.0 % (20.0-60.0); MONOCYTES % MANUAL 8.0 % (2.0-8.0); NEUTROPHILS % MANUAL 87.0 % (45.0-75.0); PLATELET ESTIMATE NORMAL
[2025-01-15] VITALS (12 sets, daily range): BP systolic 103–146; BP diastolic 56–85; PULSE 90–180; RESP 16–20; TEMP 36.6–37.2; O2SAT 93–100
[2025-01-15 06:10] LABS: HEMATOCRIT. 23.6 % (36.0-48.0); HEMOGLOBIN. 7.7 g/dL (12.0-16.0); MEAN PLATELET VOLUME 8.7 fl (7.4-10.4); PLATELET 372 x1000/uL (130-400); RED BLOOD CELL COUNT 2.59 mill/uL (4.2-5.4); RED CELL DISTRIBUTION WIDTH 16.1 % (11.6-14.6)
[2025-01-15 06:32] LABS: UREA NITROGEN BLOOD 78.0 mg/dL (9-23)
[2025-01-15 06:38] LABS: CREATININE 20.9 mg/dL (0.6-1.0)
[2025-01-15] MEDS ORDERED: *PATIENT'S OWN MEDICATION STORAGE XX SCH (10:00)
[2025-01-15 13:05] LABS: BAND% 4.0 % (1.0-6.0); EOSINOPHILS % MANUAL 2.0 % (0.0-5.0); LYMPHOCYTES % MANUAL 7.0 % (20.0-60.0); MONOCYTES % MANUAL 4.0 % (2.0-8.0); NEUTROPHILS % MANUAL 83.0 % (45.0-75.0); PLATELET ESTIMATE NORMAL
[2025-01-15] MEDS: VANCOMYCIN 500 MG in DEXT 5% WATER 100 ML IV SCH (18:26)
[2025-01-16] VITALS: BP 136/83; PULSE 101; RESP 18; TEMP 36.8; O2SAT 93
[2025-01-16 04:00] VITALS: BP 145/98; PULSE 107; RESP 18; TEMP 36.7; O2SAT 93
[2025-01-16 08:00] VITALS: BP 140/82; PULSE 105; RESP 20; TEMP 36.6; O2SAT 95
[2025-01-16] MEDS: LACTULOSE 20G/30ML UDC PO NR (09:19)
[2025-01-16 12:00] VITALS: BP 136/76; PULSE 111; RESP 22; TEMP 37.2; O2SAT 95
[2025-01-16 16:00] VITALS: BP 145/77; PULSE 110; RESP 19; TEMP 37.2; O2SAT 96
[2025-01-16] MEDS: METOPROLOL TARTRATE 25MG TABLET PO SCH (16:16)
[2025-01-16 20:00] VITALS: BP 125/75; PULSE 102; RESP 18; TEMP 36.5; O2SAT 95
[2025-01-17] VITALS (17 sets, daily range): BP systolic 108–146; BP diastolic 59–84; PULSE 89–97; RESP 15–18; TEMP 36.3918–37.2252; O2SAT 94–100
[2025-01-17 07:26] LABS: HEMATOCRIT. 21.7 % (36.0-48.0); MEAN PLATELET VOLUME 8.5 fl (7.4-10.4); PLATELET 412 x1000/uL (130-400); RED BLOOD CELL COUNT 2.33 mill/uL (4.2-5.4); RED CELL DISTRIBUTION WIDTH 15.9 % (11.6-14.6)
[2025-01-17 07:37] LABS: UREA NITROGEN BLOOD 48.0 mg/dL (9-23)
[2025-01-17 07:58] LABS: HEMOGLOBIN. 6.9 g/dL (12.0-16.0)
[2025-01-17 08:17] LABS: CREATININE 16.8 mg/dL (0.6-1.0)
[2025-01-17 12:52] LABS: EOSINOPHILS % MANUAL 2.0 % (0.0-5.0); LYMPHOCYTES % MANUAL 5.0 % (20.0-60.0); MONOCYTES % MANUAL 8.0 % (2.0-8.0); NEUTROPHILS % MANUAL 85.0 % (45.0-75.0); PLATELET ESTIMATE SLIGHTLY INCREASED
[2025-01-17] MEDS: VANCOMYCIN 500 MG in DEXT 5% WATER 100 ML IV SCH (18:01)
[2025-01-17] MEDS: DEXT 5%/0.9% NACL 1,000 ML IV SCH (23:53)
[2025-01-18] VITALS: BP 122/70; PULSE 95; RESP 16; TEMP 37.2; O2SAT 96
[2025-01-18 04:00] VITALS: BP 112/68; PULSE 84; RESP 18; TEMP 36.6; O2SAT 98
[2025-01-18 08:00] VITALS: BP 123/68; PULSE 89; RESP 16; TEMP 36.7; O2SAT 97
[2025-01-18 12:00] VITALS: BP 124/63; PULSE 86; RESP 17; TEMP 36.6; O2SAT 98
[2025-01-18 13:33] LABS: BASOPHILS % 0.2 % (0.0-2.0); EOSINOPHILS % 2.3 % (0.0-5.0); HEMATOCRIT. 29.4 % (36.0-48.0); HEMOGLOBIN. 8.2 g/dL (12.0-16.0); LYMPHOCYTES % 11.6 % (20.0-50.0); MEAN PLATELET VOLUME 8.0 fl (7.4-10.4); MONOCYTES % 6.2 % (2.0-8.0); NEUTROPHILS % 79.7 % (40.0-76.0); PLATELET 349 x1000/uL (130-400); RED BLOOD CELL COUNT 2.85 mill/uL (4.2-5.4); RED CELL DISTRIBUTION WIDTH 19.9 % (11.6-14.6)
[2025-01-18 13:42] LABS: UREA NITROGEN BLOOD 49.0 mg/dL (9-23)
[2025-01-18 13:44] LABS: CREATININE 13.9 mg/dL (0.6-1.0)
[2025-01-18 16:00] VITALS: BP 120/70; PULSE 89; RESP 16; TEMP 36.5; O2SAT 96
[2025-01-18 20:00] VITALS: BP 103/52; PULSE 85; RESP 18; TEMP 36.2; O2SAT 91
[2025-01-18] MEDS: DOCUSATE SODIUM 250MG CAPSULE PO SCH (21:44)
[2025-01-19] VITALS (22 sets, daily range): BP systolic 18–143; BP diastolic 54–89; PULSE 88–111; RESP 17–22; TEMP 36.2–37.5; O2SAT 91–100
[2025-01-19 10:20] LABS: BASOPHILS % 0.3 % (0.0-2.0); EOSINOPHILS % 2.4 % (0.0-5.0); HEMATOCRIT. 23.2 % (36.0-48.0); HEMOGLOBIN. 7.5 g/dL (12.0-16.0); LYMPHOCYTES % 9.9 % (20.0-50.0); MEAN PLATELET VOLUME 8.3 fl (7.4-10.4); MONOCYTES % 6.0 % (2.0-8.0); NEUTROPHILS % 81.4 % (40.0-76.0); PLATELET 389 x1000/uL (130-400); RED BLOOD CELL COUNT 2.55 mill/uL (4.2-5.4); RED CELL DISTRIBUTION WIDTH 17.1 % (11.6-14.6)
[2025-01-19 10:47] LABS: UREA NITROGEN BLOOD 66.0 mg/dL (9-23)
[2025-01-19] MEDS ORDERED: LIDOCAINE HCL 1% 20ML VIAL ONE (10:51)
[2025-01-19] MEDS: FENTANYL CITRATE/PF 50MCG/ML 2ML VIAL IV ONE (11:30)
[2025-01-19] MEDS ORDERED: FENTANYL CITRATE/PF 50MCG/ML 2ML VIAL ONE (11:30)
[2025-01-19 11:44] LABS: CREATININE 15.9 mg/dL (0.6-1.0)
[2025-01-19] MEDS: VANCOMYCIN 500 MG in DEXT 5% WATER 100 ML IV SCH (16:16)
== END 2025-01-19 21:12 | disposition home or self-care (01) | DRG 710 ==
LOC: ER 15:16 → 7WST 21:36 → EDBEDREQTM 21:47 → EDBEDREQSVC 21:47 → EDBEDREQ 21:47 → ENRESERV 22:09 → 7EST 01-15 09:12
PROVIDERS: ADMIT Internal Medicine; ATTEND Internal Medicine
PROC: 3E1M39Z Irrigation of Peritoneal Cavity using Dialysate, Percutaneous Approach (ICD-10-PCS; 2025-01-10)
PROC: 3E1M39Z Irrigation of Peritoneal Cavity using Dialysate, Percutaneous Approach (ICD-10-PCS; 2025-01-11)
PROC: 3E1M39Z Irrigation of Peritoneal Cavity using Dialysate, Percutaneous Approach (ICD-10-PCS; 2025-01-12)
PROC: 02HV33Z Insertion of Infusion Device into Superior Vena Cava, Percutaneous Approach (ICD-10-PCS; principal; 2025-01-13)
PROC: B548ZZA Ultrasonography of Superior Vena Cava, Guidance (ICD-10-PCS; 2025-01-13)
PROC: 5A1D70Z Performance of Urinary Filtration, Intermittent, Less than 6 Hours Per Day (ICD-10-PCS; 2025-01-13)
PROC: 0WPG03Z Removal of Infusion Device from Peritoneal Cavity, Open Approach (ICD-10-PCS; 2025-01-14)
PROC: 5A1D70Z Performance of Urinary Filtration, Intermittent, Less than 6 Hours Per Day (ICD-10-PCS; 2025-01-15)
PROC: 5A1D70Z Performance of Urinary Filtration, Intermittent, Less than 6 Hours Per Day (ICD-10-PCS; 2025-01-17)
PROC: 30233N1 Transfusion of Nonautologous Red Blood Cells into Peripheral Vein, Percutaneous Approach (ICD-10-PCS; 2025-01-17)
PROC: 0JH63XZ Insertion of Tunneled Vascular Access Device into Chest Subcutaneous Tissue and Fascia, Percutaneous Approach (ICD-10-PCS; 2025-01-19)
PROC: 02H633Z Insertion of Infusion Device into Right Atrium, Percutaneous Approach (ICD-10-PCS; 2025-01-19)
PROC: B5181ZA Fluoroscopy of Superior Vena Cava using Low Osmolar Contrast, Guidance (ICD-10-PCS; 2025-01-19)
PROC: 5A1D70Z Performance of Urinary Filtration, Intermittent, Less than 6 Hours Per Day (ICD-10-PCS; 2025-01-19)
PROC: 02PYX3Z Removal of Infusion Device from Great Vessel, External Approach (ICD-10-PCS; 2025-01-19)
DX: A41.9 Sepsis, unspecified organism (principal); K65.9 Peritonitis, unspecified; K85.90 Acute pancreatitis without necrosis or infection, unspecified; N18.6 End stage renal disease; I12.0 Hypertensive chronic kidney disease with stage 5 chronic kidney disease or end stage renal disease; R79.89 Other specified abnormal findings of blood chemistry; T85.71XA Infection and inflammatory reaction due to peritoneal dialysis catheter, initial encounter; E87.5 Hyperkalemia; N39.0 Urinary tract infection, site not specified; J45.909 Unspecified asthma, uncomplicated; E66.9 Obesity, unspecified; T85.611A Breakdown (mechanical) of intraperitoneal dialysis catheter, initial encounter; D50.9 Iron deficiency anemia, unspecified; K40.90 Unilateral inguinal hernia, without obstruction or gangrene, not specified as recurrent; E83.39 Other disorders of phosphorus metabolism; R60.9 Edema, unspecified; B95.62 Methicillin resistant Staphylococcus aureus infection as the cause of diseases classified elsewhere; Z68.32 Body mass index [BMI] 32.0-32.9, adult; Z88.0 Allergy status to penicillin; Z99.2 Dependence on renal dialysis; Z88.8 Allergy status to other drugs, medicaments and biological substances; Z79.899 Other long term (current) drug therapy; Y81.2 Prosthetic and other implants, materials and accessory general- and plastic-surgery devices associated with adverse incidents; Y83.8 Other surgical procedures as the cause of abnormal reaction of the patient, or of later complication, without mention of misadventure at the time of the procedure; Y92.89 Other specified places as the place of occurrence of the external cause
CPT/HCPCS: 36415; 36558; 71045; 74176; 76705; 77001; 80048; 80076; 80202; 81003; 83735; 84100; 84145; 84703; 85025; 86705; 86709; 86850; 86900; 86920; 87186; 87340; 88300; 90935; 90945; 96372; 99152; 99153; 99291; A4606; C1752; J0665; J0690; J0885; J1171; J1308; J1642; J1644; J1885; J2003; J2151; J2371; J2405; J2704; J2997; J3010; J3373; J3490; J7040; J7042; J7060; P9016; Q0162; Q0163; G0500; J0131